=== PATIENT | female | born 1965 | race Caucasian/White ===

== ENCOUNTER 2016-05-28 14:54 | Emergency (ER) | payer BC ==
[2016-05-28 15:39] VITALS: BP 127/80
--- NOTE | 2016-05-28 15:56 | UC ---
FLU HPI - HPI Summary HPI Summary: couple days of feeling congested, sore throat, fever-no nausea, vomiting, diarrhea - History of Current Complaint Chief Complaint: UCGeneralIllness Stated Complaint: SINUS COMPLAINT Time Seen by Provider: 05/28/16 15:26 Hx Obtained From: Patient Hx Last Menstrual Period: 05/18/16 ?: No Onset/Duration: Sudden Onset, Lasting Days - 2, Still Present Severity Currently: Mild Severity Initially: Mild Associated Signs & Symptoms: Positive: Fever, Myalgia, Cough, Sore Throat - Allergy/Home Medications Allergies/Adverse Reactions: Allergies Allergy/AdvReac Type Severity Reaction Status Date / Time No Known Allergies Allergy Verified 01/15/16 12:47 Home Medications: Home Medications Hydrochlorothiazide TAB* [Hydrodiuril TAB*] 50 mg PO 05/28/16 [History Confirmed 05/28/16] PMH/Surg Hx/FS Hx/Imm Hx Previously Healthy: No Cardiovascular History Of: Reports: Hypertension Cancer History Of: Denies: Breast Cancer - Surgical History Surgery Procedure, Year, and Place: 1 , 2006 - Family History Known Family History: Positive: Hypertension, Diabetes - Social History Occupation: Employed Full-time Lives: With Family Alcohol Use: Occasionally Substance Use Type: None Smoking Status (MU): Never Smoked Tobacco - Immunization History Most Recent Influenza Vaccination: 2016 Review of Systems Constitutional: Fever, Chills Skin: Negative Eyes: Negative ENT: Sore Throat Respiratory: Cough Cardiovascular: Negative Gastrointestinal: Negative Genitourinary: Negative Motor: Negative Neurovascular: Negative Musculoskeletal: Negative Neurological: Negative Psychological: Negative All Other Systems Reviewed And Are Negative: Yes Physical Exam Triage Information Reviewed: Yes Appearance: Well-Appearing, No Pain Distress, Well-Nourished Vital Signs: Initial Vital Signs Temp 99.6 F 05/28/16 15:28 Pulse 82 05/28/16 15:28 Resp 18 05/28/16 15:28 BP 127/80 05/28/16 15:28 Pulse Ox 95 05/28/16 15:28 Vital Signs Reviewed: Yes Eye Exam: Normal Eyes: Positive: Conjunctiva Clear ENT Exam: Normal ENT: Positive: Normal ENT inspection, Hearing grossly normal, Pharynx normal, TMs normal. Negative: Nasal congestion, Nasal drainage, Tonsillar swelling, Tonsillar exudate, Trismus, Muffled/hoarse voice Dental Exam: Normal Neck exam: Normal Neck: Positive: Supple, Nontender, No Lymphadenopathy Respiratory Exam: Normal Respiratory: Positive: Chest non-tender, Lungs clear, Normal breath sounds, No respiratory distress, No accessory muscle use Cardiovascular Exam: Normal Cardiovascular: Positive: RRR, No Murmur, Pulses Normal, Brisk Capillary Refill Musculoskeletal Exam: Normal Musculoskeletal: Positive: Strength Intact, ROM Intact, No Edema Neurological Exam: Normal Neurological: Positive: Alert, Muscle Tone Normal Psychological Exam: Normal Skin Exam: Normal Diagnostics - Laboratory Diagnostic Studies Completed/Ordered: influenza B (+), RST (-) Flu Course/Dx - Course Course Of Treatment: rest, tylenol, ibuprofen, otc cough medications for symptom relief, follow with pcp prn - Differential Dx/Diagnosis Differential Diagnosis/HQI/PQRI: Influenza, Pneumonia, Upper Respiratory Infection Provider Diagnoses: Influenza B Discharge - Discharge Plan Condition: Stable Disposition: HOME Patient Education Materials: Influenza (ED) Forms: *Work Release Referrals: Xiomara Anderson MD [Primary Care Provider] - If Needed
== END 2016-05-28 16:20 | disposition home or self-care (01) ==
LOC: UCEAST 14:54
DX: J11.1 Influenza due to unidentified influenza virus with other respiratory manifestations (principal); I10 Essential (primary) hypertension
CPT/HCPCS: 87502; 87651; 99211; G0463

== ENCOUNTER 2017-11-27 07:02 | Emergency (ER) | payer BC ==
[2017-11-27 07:34] VITALS: BP 130/81
--- NOTE | 2017-11-27 08:23 | UC ---
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 She states she was up several times over night having to urinate. Denies fever." -has had UTIs in past and sx are consistent. no fevers or chills. no n/v/ no body aches. - History Of Current Complaint Chief Complaint: UCGU Stated Complaint: URINARY COMPLAINT Hx Last Menstrual Period: 11/13/17 Pain Intensity: 1 - Allergies/Home Medications Allergies/Adverse Reactions: Allergies Allergy/AdvReac Type Severity Reaction Status Date / Time No Known Allergies Allergy Verified 11/27/17 07:34 Home Medications: Home Medications Enalapril Maleate 30 mg PO DAILY 11/27/17 [History Confirmed 11/27/17] Ibuprofen TAB* [Advil TAB*] 400 mg PO Q6H PRN 11/27/17 [History Confirmed ] PMH/Surg Hx/FS Hx/Imm Hx Previously Healthy: Yes - Surgical History Surgical History: Yes Surgery Procedure, Year, and Place: 1 , 2006 - Family History Known Family History: Positive: Hypertension, Diabetes - Social History Alcohol Use: Weekly Substance Use Type: None Smoking Status (MU): Never Smoked Tobacco - Immunization History Most Recent Influenza Vaccination: 2016 Review of Systems Constitutional: Negative Skin: Negative Eyes: Negative ENT: Negative Respiratory: Negative Cardiovascular: Negative Gastrointestinal: Negative Genitourinary: Dysuria, Hematuria, Frequency Motor: Negative Neurovascular: Negative Musculoskeletal: Negative Neurological: Negative Psychological: Negative Is Patient Immunocompromised?: No All Other Systems Reviewed And Are Negative: Yes Physical Exam Triage Information Reviewed: Yes Appearance: Well-Appearing - very pleasant, No Pain Distress, Well-Nourished Vital Signs: Initial Vital Signs Temp 98.1 F 11/27/17 07:29 Pulse 84 11/27/17 07:29 Resp 16 11/27/17 07:29 BP 130/81 11/27/17 07:29 Pulse Ox 100 11/27/17 07:29 Vital Signs Reviewed: Yes Eye Exam: Normal ENT Exam: Normal Neck exam: Normal Neck: Positive: Supple, Nontender, No Lymphadenopathy Respiratory Exam: Normal Respiratory: Positive: Lungs clear Cardiovascular Exam: Normal Cardiovascular: Positive: RRR Abdomen Description: Positive: Soft, Other: - mild suprapubic pressure on palpation. Negative: CVA Tenderness (R), CVA Tenderness (L) Bowel Sounds: Positive: Present Musculoskeletal Exam: Normal Neurological Exam: Normal Psychological Exam: Normal Complaint Female Dx - Course Course Of Treatment: reinforced to be certain to f/u with PCP to assure that hematuria has resolved. UA + leuk & + blood. -sx c/w UTI. will treat w/ macrobid. - Differential Dx/Diagnosis Differential Diagnosis/HQI/PQRI: Renal Colic, Urinary Tract Infection Provider Diagnoses: UTI Discharge - Sign-Out/Discharge Documenting (check all that apply): Patient Departure All imaging exams completed and their final reports reviewed: No Studies - Discharge Plan Condition: Stable Disposition: HOME Prescriptions: Nitrofurantoin Monohyd/M-Cryst [Macrobid 100 mg Capsule] 100 mg PO BID #14 cap Patient Education Materials: Urinary Tract Infection in Women (ED) Referrals: Xiomara Anderson MD [Primary Care Provider] - 7 Days Additional Instructions: Drink plenty of fluids and get lots of rest. - Billing Disposition and Condition Condition: STABLE Disposition: Home
== END 2017-11-27 08:35 | disposition home or self-care (01) ==
LOC: UCCORT 07:02
DX: N39.0 Urinary tract infection, site not specified (principal)
CPT/HCPCS: 81003; 87077; 87086; 87186; 99212; G0463